=== PATIENT | male | born 1960 | race Hispanic/Latino ===

== ENCOUNTER 2018-04-17 10:21 | Emergency (ER) | payer OTHER ==
[~2018-04-17] VITALS: Ht 177.8 cm; Wt 108.9 kg
[2018-04-17] MEDS ORDERED: LIDOCAINE 1% W/EPINEPHRINE 20 ML VIAL INJ ONE (11:15)
[2018-04-17] MEDS ORDERED: TETANUS/DIPHTHERIA TOX ADULT 0.5 ML SYR IM STA (11:51)
[2018-04-17] MEDS ORDERED: NEOMYCIN/POLYMYX/BACITR OINT 0.9 GM PKT TOP STA (11:59)
[2018-04-17] MEDS ORDERED: BACITRACIN ZINC 0.9GM TP ONE (12:00)
[2018-04-17 12:06] VITALS: BP 111/79
== END 2018-04-17 12:20 | disposition home or self-care (01) ==
LOC: ER 10:21
DX: S00.83XA Contusion of other part of head, initial encounter (principal); S01.111A Laceration without foreign body of right eyelid and periocular area, initial encounter; S40.011A Contusion of right shoulder, initial encounter; W06.XXXA Fall from bed, initial encounter; Y93.84 Activity, sleeping; Y92.003 Bedroom of unspecified non-institutional (private) residence as the place of occurrence of the external cause; I10 Essential (primary) hypertension; E78.5 Hyperlipidemia, unspecified
CPT/HCPCS: 90471; 90714; 99283

== ENCOUNTER 2019-09-30 09:51 | Emergency (ER) | payer BC, OTHER ==
[~2019-09-30] VITALS: Ht 177.8 cm; Wt 108.9 kg
[2019-09-30] MEDS ORDERED: SODIUM CHLORIDE 0.9% 1000ML 1,000 ML IV STA (10:02)
[2019-09-30 10:13] LABS: BILIRUBIN,URINE MODERATE (NEGATIVE); CLARITY,URINE CLEAR (CLEAR); COLOR,URINE ORANGE (YELLOW); KETONES,URINE 1+ (NEGATIVE); LEUKOCYTE ESTERASE ,URINE NEGATIVE (NEGATIVE); NITRITE,URINE POSITIVE (NEGATIVE); PROTEIN,URINE DIPSTICK 2+ (NEGATIVE); URINE UROBILINOGEN 4 mg/dL (0.2 - 1)
[2019-09-30] MEDS ORDERED: ACETAMINOPHEN 325 MG TAB PO ONE (10:15)
[2019-09-30] MEDS ORDERED: ACETAMINOPHEN 325 MG TAB ONE (10:15)
[2019-09-30] MEDS ORDERED: CEFTRIAXONE SOD 1 GM VIAL IV ONE (10:15)
[2019-09-30] MEDS ORDERED: ONDANSETRON HCL INJ 2MG/ML 2ML 2 MG/ML VIAL IV ONE (10:15)
[2019-09-30] MEDS ORDERED: KETOROLAC TROMETHAMINE 30 MG/ML VIAL IV NR (10:15)
[2019-09-30 10:22] LABS: BASOPHILS % 0.2 % (0.0-1.0); EOSINOPHILS # (AUTO) 0.1 (0.0-0.4); EOSINOPHILS % 0.8 % (0.0-6.0); HEMOGLOBIN 15.1 g/dL (14.0-18.0); LYMPHOCYTES # (AUTO) 1.5 (1.0-3.2); LYMPHOCYTES % 12.6 % (18.0-39.1); MEAN CORPUSCULAR HEMOGLOBIN 31.1 pg (28-32); MEAN CORPUSCULAR HGB CONC 34.3 g/dL (31-35); MEAN CORPUSCULAR VOLUME 90.5 fL (81-99); MONOCYTES # (AUTO) 1.4 (0.2-0.8); MONOCYTES % 11.6 % (4.4-11.3); NEUTROPHILS # (AUTO) 8.8 (2.1-6.9); NEUTROPHILS % 74.4 % (38.7-80.0); PLATELET COUNT 349 x10e3/uL (140-360); RED BLOOD COUNT 4.86 x10e6/uL (4.3-5.7); RED CELL DISTRIBUTION WIDTH 13.4 % (11.7-14.4)
[2019-09-30 10:27] LABS: BACTERIA,URINE FEW /HPF; EPITHELIAL CELLS,URINE FEW /LPF
[2019-09-30 10:39] LABS: ALBUMIN 3.5 g/dL (3.5-5.0); ALBUMIN/GLOBULIN RATIO 0.8 (0.8-2.0); ANION GAP 18.3 mmol/L (8-16); CREATININE, SERUM 1.28 mg/dL (0.72-1.25); POTASSIUM 3.3 mmol/L (3.5-5.1)
--- NOTE | 2019-09-30 11:33 | Diagnostic Imaging Report ---
CT Abdomen and Pelvis without contrast INDICATION: ^Look for stone, Pyelo ^[id number] ^1100 ^Y TECHNIQUE: Thin collimation axial images obtained from the diaphragm to the level of the pubic symphysis without nonionic intravenous contrast. Dose reduction techniques used: Automated exposure control, adjustment of the mAs and/or kVp according to patient size, standardized low-dose protocol, and/or iterative reconstruction technique. RADIATION DOSE: Total DLP: 913.4 mGy*cm Estimated effective dose: (DLP x 0.015 x size factor) mSv CTDIvol has been reviewed. It is below the limits set by the Radiation Protocol Committee (RPC). COMPARISON: None. ABDOMEN FINDINGS: Lung Bases: Bibasilar atelectasis. Prominent pericardial fat pads. The heart is normal in size. Liver: Steatosis. No mass. Gallbladder: Absent. No ductal dilatation. Pancreas: Diffuse fatty atrophy without mass or ductal dilatation. Spleen: Normal size without mass. Adrenal Glands: No evidence for mass. Kidneys: Right: Punctate calculus in the interpolar region. No cortical mass or hydronephrosis Left: No renal calculus. No cortical mass or hydronephrosis Lymph Nodes: No enlarged abdominal lymph nodes. Perirectal lymph nodes are increased in number but are not particularly enlarged. Aorta: Normal in diameter. PELVIS FINDINGS: Bowel: Stomach: Normal. Small Bowel: Normal in caliber with normal wall thickness. Large Bowel: Normal in caliber with normal wall thickness. Appendix: Normal. Bladder: Collapsed with circumferential mural thickening. No intraluminal calculus. Ureters: No ureteral dilatation or calculus. Prostate: Prominent with periprostatic fat inflammation. Seminal vesicles are normal in morphology. Bones: Mild degenerative changes of the spine. Soft tissues: Unremarkable. IMPRESSION: 1. Diffuse mural thickening of the urinary bladder with perivesicular inflammation suggestive of cystitis. Inflammation surrounding the prostate gland is suggestive of prostatitis. 2. Tiny right intrarenal calculus. No obstructive uropathy. 3. Steatosis. Signed by: Dr. Kelvin Chappell MD on 09/30/2019 11:30 AM
== END 2019-09-30 12:05 | disposition home or self-care (01) ==
LOC: ER 09:51
DX: R30.0 Dysuria (principal); N30.01 Acute cystitis with hematuria; N41.0 Acute prostatitis
CPT/HCPCS: 36415; 74176; 80053; 81001; 85025; 99284; J0696; J1885; J2405; J7030

== ENCOUNTER 2020-01-14 16:55 | Emergency (ER) | payer BC ==
[~2020-01-14] VITALS: Ht 177.8 cm; Wt 108.9 kg
--- OUTSIDE RECORDS SUMMARY | 2020-01-14 16:58 | XMS REPORT ---
[facility] Address Unknown Phone Unavailable Care Team Providers Care Body Stylist Name Role Phone Dominique TELLO Unavailable Unavailable Problems This patient has no known problems. Allergies, Adverse Reactions, Alerts This patient has no known allergies or adverse reactions. Medications This patient has no known medications. Results Test Description Test Time Test Comments Text Results Atomic Results Result Comments CT ABDOMEN/PELVIS WO 2019-09-30 11:26:00 [place] [id number] Patient Name: ART CAGLE MR #: [id number] : 1960 Age/Sex: 58/M Req #: [id number] Adm Physician: Ordered by: DAPHNE TELLO MD Report #: [id number] Location: ER Room/Bed: Procedure: [id number] CT/CT ABDOMEN/PELVIS WO Exam Date: 09/30/19 Exam Time: 1100 REPORT STATUS: Signed CT Abdomen and Pelvis without contrast INDICATION: Look for stone, Pyelo [id number] 1100 Y TECHNIQUE: Thin collimation axial images obtained from the diaphragm to the level of the pubic symphysis without nonionic intravenous contrast. Dose reduction techniques used: Automated exposure control, adjustment of the mAs and/or kVp according to patient size, standardized low-dose protocol, and/or iterative reconstruction technique. RADIATION DOSE: Total DLP: 913.4 mGy*cm Estimated effective dose: (DLP x 0.015 x size factor) mSv CTDIvol has been reviewed. It is below the limits set by the Radiation Protocol Committee (RPC). COMPARISON: None. ABDOMEN FINDINGS: Lung Bases: Bibasilar atelectasis. Prominent pericardial fat pads. The heart is normal in size. Liver: Steatosis. No mass. Gallbladder: Absent. No ductal dilatation. Pancreas: Diffuse fatty atrophy without mass or ductal dilatation. Spleen: Normal size without mass. Adrenal Glands: No evidence for mass. Kidneys: Right: Punctate calculus in the interpolar region. No cortical mass or hydronephrosis Left: No renal calculus. No cortical mass or hydronephrosis Lymph Nodes: No enlarged abdominal lymph nodes. Perirectal lymph nodes are increased in number but are not particularly enlarged. Aorta: Normal in diameter. PELVIS FINDINGS: Bowel: Stomach: No rmal. Small Bowel: Normal in caliber with normal wall thickness. Large Bowel: Normal in caliber with normal wall thickness. Appendix: Normal. Bladder: Collapsed with circumferential mural thickening. No intraluminal calculus. Ureters: No ureteral dilatation or calculus. Prostate: Prominent with periprostatic fat inflammation. Seminal vesicles are normal in morphology. Bones: Mild degenerative changes of the spine. Soft tissues: Unremarkable. IMPRESSION: 1. Diffuse mural thickening of the urinary bladder with perivesicular inflammation suggestive of cystitis. Inflammation surrounding the prostate gland is suggestive of prostatitis. 2. Tiny right intrarenal calculus. No obstructive uropathy. 3. Steatosis. Signed by: Dr. Julius Chappell MD on 09/30/2019 11:30 AM Dictated By: JULIUS CHAPPELL MD [id number] Transcribed By: LESLEY on 09/30/19 1130 COPY TO: Dora TELLO MD
[2020-01-14] MEDS ORDERED: ROSUVASTATIN CA20 MG PO (17:10)
[2020-01-14] MEDS ORDERED: LEVOTHYROXINE25 MCG PO (17:10)
[2020-01-14] MEDS ORDERED: TAMSULOSIN PO (17:10)
[2020-01-14] MEDS ORDERED: DOXAZOSIN MESYLA2 MG PO (17:10)
[2020-01-14] MEDS ORDERED: ENALAPRIL MALE2.5 MG PO (17:10)
[2020-01-14 17:40] LABS: BASOPHILS % 0.2 % (0.0-1.0); EOSINOPHILS # (AUTO) 0.1 (0.0-0.4); EOSINOPHILS % 0.6 % (0.0-6.0); HEMATOCRIT 42.4 % (38.2-49.6); HEMOGLOBIN 14.5 g/dL (14.0-18.0); LYMPHOCYTES # (AUTO) 1.7 (1.0-3.2); LYMPHOCYTES % 13.3 % (18.0-39.1); MEAN CORPUSCULAR HGB CONC 34.2 g/dL (31-35); MEAN CORPUSCULAR VOLUME 90.8 fL (81-99); MONOCYTES # (AUTO) 1.1 (0.2-0.8); MONOCYTES % 9.1 % (4.4-11.3); NEUTROPHILS # (AUTO) 9.5 (2.1-6.9); NEUTROPHILS % 76.5 % (38.7-80.0); PLATELET COUNT 267 x10e3/uL (140-360); RED BLOOD COUNT 4.67 x10e6/uL (4.3-5.7); RED CELL DISTRIBUTION WIDTH 13.3 % (11.7-14.4)
[2020-01-14 17:53] LABS: ANION GAP 11.6 mmol/L (8-16); BLOOD UREA NITROGEN 9 mg/dL (7-26); BUN/CREATININE RATIO 9 (6-25); CALCIUM 9.2 mg/dL (8.4-10.2); CARBON DIOXIDE 26 mmol/L (22-29); CHLORIDE 103 mmol/L (98-107); CREATININE, SERUM 1.01 mg/dL (0.72-1.25); EST GLOMERULAR FILTRATION RATE > 60 ML/MIN (60-); GLUCOSE 89 mg/dL (74-118); POTASSIUM 3.6 mmol/L (3.5-5.1); SODIUM 137 mmol/L (136-145)
[2020-01-14 17:57] LABS: BILIRUBIN,URINE 1+ (NEGATIVE); CLARITY,URINE SL CLOUDY (CLEAR); COLOR,URINE AMBER (YELLOW); KETONES,URINE NEGATIVE (NEGATIVE); LEUKOCYTE ESTERASE ,URINE TRACE (NEGATIVE); NITRITE,URINE NEGATIVE (NEGATIVE); PROTEIN,URINE DIPSTICK 2+ (NEGATIVE); URINE UROBILINOGEN 1 mg/dL (0.2 - 1)
[2020-01-14 18:12] LABS: RBC,URINE 21-50 /HPF (0-5); WBC,URINE (MAN) 0-5 /HPF (0-5)
[2020-01-14 18:13] LABS: BACTERIA,URINE FEW /HPF
[2020-01-14] MEDS ORDERED: CEFTRIAXONE SOD 1 GM/NS 50 ML 50 ML IV ONE (19:00)
[2020-01-14] MEDS ORDERED: CEFDINIR300 MG PO (19:03)
[2020-01-14 20:05] VITALS: BP 148/76
== END 2020-01-14 20:32 | disposition home or self-care (01) ==
LOC: ER 16:55
DX: R30.0 Dysuria (principal); N30.91 Cystitis, unspecified with hematuria; I10 Essential (primary) hypertension; E11.9 Type 2 diabetes mellitus without complications
CPT/HCPCS: 36415; 80048; 81001; 85025; 87086; 87186; 99283; J0696